=== PATIENT | male | born 1955 | race Caucasian/White ===

== ENCOUNTER 2024-06-27 14:57 | Outpatient (CLI) | payer MEDICARE, SELFPAY ==
--- NOTE | 2024-06-27 15:15 | MR_ITS ---
WS: [id number] MRI THORACIC SPINE noncontrast HISTORY: M54.9 - Dorsalgia, unspecified COMPARISON: None available. TECHNIQUE: Multiplanar sequences are performed in sagittal and axial planes. Normal thoracic alignment. Disc spaces are mildly narrowed. Bones are heterogeneous which is probably related to osteopenia. No marrow edema or fracture. No signal abnormality within the cord. No cord e nlargement. Conus tapers normally and ends at L1. Bilateral facet joint arthropathy mild to moderate throughout the thoracic spine. T1-2: Normal. T2-3: Small paracentral and central disc protrusions and mild foraminal stenosis due to osteophyte an d facet disease. T3-4: Normal. T4-5: Normal. T5-6: Mild facet arthritis. T6-7: Mild facet arthritis. T7-8: Mild facet arthritis. T8-9: Moderate bilateral facet joint arthritis, LEFT greater than RIGHT and mild foraminal stenosis. T9-10: Moderate facet arthritis and moderate bilateral foraminal stenosis. T10-11: Moderate bilateral facet arthritis and foraminal stenosis. T11-12: Mild to moderate bilateral foraminal stenosis and facet arthropathy. Mild atherosclerosis thoracic aorta. MR/MR thoracic spin wo con* [id number] IMPRESSION: 1. No acute marrow edema or fracture. 2. Multilevel facet joint arthritis is mild to moderate. 3. Most significant facet joint arthritis from T8-9 through T10-11. 4. Normal signal in the cord.
--- NOTE | 2024-06-27 16:00 | MR_ITS ---
WS: [id number] MRI LUMBAR SPINE NONCONTRAST HISTORY: M54.9 - Dorsalgia, unspecified COMPARISON: None available. TECHNIQUE: Sagittal and axial multisequence imaging is submitted. Slight increase in the lumbar lordosis. No fractures or acute marrow edema. Disc spaces are mildly na rrowed at L4-5 and L5-S1. Marrow signal is heterogeneous which may be related to osteopenia. Conus terminates normally at L1-2 disc level. L1-L2: Mild bilateral facet joint arthropathy. No focal protrusion. Mild bilateral foraminal stenosis . L2-L3: Mild annular disc bulging with mild osteophytic ridging. Moderate facet and ligamentum flavum arthropathy. Mild encroachment upon the subarticular recesses. Mild bilateral subarticular recess and foraminal stenosis. L3-L4: Diffuse mild annular disc bulging with a central disc protrusion. There is mild disc encroachm ent upon the subarticular recesses and central canal. Mild central with bilateral subarticular recess and foraminal stenosis. Slightly greater encroachment upon the traversing LEFT L4 nerve root. L4-L5: Diffuse annular disc bulging with osteophytic ridging. Central disc protrusion slightly asymme tric to the RIGHT. Moderate ligamentum flavum and facet arthropathy. Moderate central stenosis and robledo barticular recess encroachment. More significant contact and displacement of the RIGHT traversing L5 nerve root. Moderate foraminal stenosis. L5-S1: Annular disc bulging with osteophytic ridging. Moderate ligamentum flavum and facet arthropath y. There is a small central disc protrusion also. Combination of findings is resulting in moderate ce ntral, bilateral subarticular recess and foraminal stenosis. There is disc contacting both the L5 and S1 nerve roots. Mild atherosclerotic changes in the abdominal aorta. MR/MR lumbar spine wo con* [id number] IMPRESSION: 1. Facet joint arthropathy at multiple levels. 2. L5-S1: Moderate central and bilateral subarticular recess and foraminal shari nosis. There is contact on the L5 and S1 nerve roots. 3. L4-5: Asymmetric central disc protrusion with contact greater on the RIGHT traversing L5 nerve root. Moderate central, bilateral subarticular recess and f oraminal stenosis. 4. L3-4: Mild central with bilateral subarticular recess and foraminal stenosi s. Mild encroachment upon the traversing L4 nerve roots. 5. L2-3: Mild bilateral subarticular recess and foraminal stenosis.
== END 2024-06-27 14:58 | disposition home or self-care (01) ==
LOC: RAD 14:57
PROVIDERS: PCP Nurse Practitioner; Visit Provider Nurse Practitioner
DX: M51.360 Other intervertebral disc degeneration, lumbar region with discogenic back pain only (principal); M99.61 Osseous and subluxation stenosis of intervertebral foramina of cervical region; M99.64 Osseous and subluxation stenosis of intervertebral foramina of sacral region; M51.26 Other intervertebral disc displacement, lumbar region
CPT/HCPCS: 72146; 72148

== ENCOUNTER → 2024-07-17 13:53 | Outpatient (BNVA) | payer MEDICARE, SELFPAY | PROVIDERS: PCP Nurse Practitioner; Visit Provider Orthopaedic Surgery | DX: M54.9 Dorsalgia, unspecified (principal) | CPT/HCPCS: 72072; 72110; 99204 ==

== ENCOUNTER 2024-07-31 06:00 | Outpatient (RCR) | payer MEDICARE, SELFPAY | END 2024-08-11 23:59 | disposition home or self-care (01) | LOC: MPT 06:00 | PROVIDERS: Visit Provider Orthopaedic Surgery | DX: M54.9 Dorsalgia, unspecified (principal); G89.29 Other chronic pain | CPT/HCPCS: 97162 ==

== ENCOUNTER 2024-08-12 06:00 | Outpatient (RCR) | payer MEDICARE, SELFPAY | END 2024-09-11 23:59 | disposition home or self-care (01) | LOC: MPT 06:00 | PROVIDERS: Visit Provider Orthopaedic Surgery | DX: M54.9 Dorsalgia, unspecified (principal); G89.29 Other chronic pain | CPT/HCPCS: 97110; 97140; G0283 ==

== ENCOUNTER 2024-09-12 06:00 | Outpatient (RCR) | payer MEDICARE, SELFPAY | END 2024-09-25 23:59 | disposition home or self-care (01) | LOC: MPT 06:00 | PROVIDERS: Visit Provider Orthopaedic Surgery | DX: M54.9 Dorsalgia, unspecified (principal); G89.29 Other chronic pain | CPT/HCPCS: 97110; G0283 ==